=== PATIENT | male | born 1945 | race Hispanic/Latino ===

== ENCOUNTER 2018-04-19 21:30 | Emergency (ER) | payer MEDICARE ==
[2018-04-19 21:33] VITALS: BMI 38.3
[2018-04-19] MEDS ORDERED: EPINEPHrine- 1 MG in Sodium Chloride 0.9% 250 ML IV ONE (21:40)
--- NOTE | 2018-04-19 22:21 | ED PDOC ---
HPI: Cardiac Arrest Time Seen by Provider: 04/19/18 21:39 Chief Complaint (Nursing): Cardiac Arrest Chief Complaint (Provider): Cardiac Arrest History Per: EMS Reason For Code Blue: Full Arrest Circumstances: Brought To ED By EMS Arrest Witnessed By: By-stander CPR Initiated Prior To MD Arrival?: Yes Down-Time Before ACLS: Mins (less than 10 minutes) Treatment Initiated Prior To MD Arrival: CPR, Intubation, ACLS Medication Initiation, IV Access Medications Given Prior To MD Arrival: Epinephrine Additional Complaint(s): 73 y/o male with a PMHx of CHF and HTN brought in by ALS for a cardiac arrest. History obtained through EMS due to patient's clinical condition. Patient called friend stating he did not feel well. Friend arrived to patient's home, friend stated patient passed out thus prompting him to call EMS. On arrival, patient appeared tabatha-arrest. EMS report a down time of less than 10 minutes. EMS report patient had ROSC about 4 times, in and out lasting for approximately one hour upon arrival to triage. EMS state patient was given 3-4 epinephrines. Upon arrival, patient had a pulse in bradycardia with a blood pressure of 105/78. Patient intubated in the field, upon arrival to the ED. PMD: [facility] - Initial Findings Mentation: Unresponsive Respirations: None (Assisted) Pulse: Weak Rhythm: PEA Past Medical History Reviewed: Historical Data, Nursing Documentation, Vital Signs - Medical History PMH: CHF, HTN (20 years ago pt dx did not want to take Rx ) Denies: HIV - Surgical History Surgical History: No Surg Hx - Family History Family History: States: Unknown Family Hx - Home Medications Home Medications: Ambulatory Orders Medication Instructions Recorded RX: Albuterol 0.042% [Albuterol 1.25 mg INH RQ6 PRN #0 neb 05/16/14 0.042% Inhal Sandra (1.25mg/3ml) UD] RX: Atorvastatin [Lipitor] 20 mg PO DAILY #0 tab 05/16/14 RX: Carvedilol [Coreg] 6.25 mg PO Q12 #0 tab 05/16/14 RX: Enalapril Maleate [Vasotec] 2.5 mg PO DAILY #0 tab 05/16/14 RX: Enoxaparin [Lovenox] 40 mg SC DAILY #0 syr 05/16/14 RX: Escitalopram [Lexapro] 10 mg PO DAILY #0 tab 05/16/14 RX: Furosemide [Lasix] 40 mg PO DAILY #0 tab 05/16/14 - Allergies Allergies/Adverse Reactions: Allergies Allergy/AdvReac Type Severity Reaction Status Date / Time No Known Allergies Allergy Verified 04/19/18 21:42 Review of Systems Review Of Systems: ROS cannot be obtained secondary to pt's inabilty to answer questions. Physical Exam - Reviewed Nursing Documentation Reviewed: Yes Vital Signs Reviewed: Yes - Physical Exam Appears: Positive for: In Acute Distress (in cardiac arrest) Head Exam: Positive for: ATRAUMATIC Skin: Positive for: Pallor, Cyanosis (peripheral) Eye Exam: Negative for: EOMI, PERRL (pupils are fixed and dilated) ENT: Negative for: Normal ENT Inspection (ET tube present) Cardiovascular/Chest: Positive for: Other (Pulseless) Respiratory: Positive for: Crackles, Other (Assisted ventilation) Gastrointestinal/Abdominal: Positive for: Soft, Distended Neurologic/Psych: Positive for: Other (Comatose). Negative for: Alert, Oriented - ECG ECG: Positive for: Interpreted By Me, Viewed By Me ECG Rhythm: Positive for: Normal QRS, Atrial Fibrillation, Nonspecific Changes Rate: 50 - Radiology X-Ray: Interpreted by Me, Viewed By Me X-Ray Interpretation: Other (Pulmonary edema, ETT in place) - Critical Care Total Time (In Min): 20 Documented Critical Care: Time excludes all time spent performint seperately billable procedures Medical Decision Making Medical Decision Making: Time: 2139 Impression: Cardiac Arrest Differentials include but not limited to Cardiac Arrhythmia, ACS, CHF exacerbation with Acute Pulmonary Edema. Plan: -- ABG -- B-Type Natriuretic Peptide -- CMP -- Digoxin -- Troponin I -- ED Urine Dipstick -- CBC with Differentials -- PTT -- Prothrombin time -- CXR Portable -- Dextrose 5% in Water 250 ml Levophed 4 mg IV 4 mcg/min -- Sodium Chloride 0.9% 250 ml Ephinephrine 1 mg IV 5 mls/hr -- Blood Culture -- Heplock Insertion -- Accucheck -- Ventilator Setting RT -- Influenza A B -- Urinalysis Time: 2147 -- Patient is pulseless. Code Blue called. ACLS and CPR initiated. Patient additionally given 3 IV pushes of epinephrine. Time: 2154 Resuscitation terminated due to persistent PEA and no sustained ROSC. -- Time of called. Scribe Attestation: Documented by Geoff Niño, acting as a scribe for Katie Pires MD. Provider Scribe Attestation: All medical record entries made by the Scribe were at my direction and personally dictated by me. I have reviewed the chart and agree that the record accurately reflects my personal performance of the history, physical exam, medical decision making, and the department course for this patient. I have also personally directed, reviewed, and agree with the discharge instructions and disposition. Disposition - Clinical Impression Clinical Impression: Cardiac arrest, CHF (congestive heart failure) - Patient ED Disposition Is Patient to be Admitted: No - Disposition Disposition: Other Institution ([facility]) Disposition Time: 21:54 Condition:
--- NOTE | 2018-04-20 08:09 | RAD ---
Date of service: 04/19/2018 HISTORY: cardiac arrest COMPARISON: 05/16/2014 chest x-ray. CT chest without contrast report May 12 2014 noted FINDINGS: LUNGS: Multiple bilateral ill-defined patchy opacities are present-an interval change with the 05/16/2014 study these opacities compatible with bilateral areas of pulmonary edema and/or pulmonary infiltrates. PLEURA: The endotracheal tube enters the left main bronchus-this was called in to the ER at approximately 8 o'clock a.m. on 04/20/2018 plan speaking with the manager community relations Katrina at that time I was informed that the patient had . No significant pleural effusion identified, no pneumothorax apparent. CARDIOVASCULAR: There is presence of aortic atherosclerotic calcification on x-ray. Cardiomegaly-similar pulmonary venous congestion suspect. Defibrillator device projecting over thorax. OSSEOUS STRUCTURES: Thoracic spondylosis. VISUALIZED UPPER ABDOMEN: Normal. OTHER FINDINGS: None. IMPRESSION: Cardiomegaly and bilateral patchy airspace opacities-compatible with areas of pulmonary edema given the clinical history. Bilateral patchy infiltrates not excluded. Endotracheal tube positioning as above and as discussed above.
[2018-04-21 00:06] VITALS: PULSE 50
== END 2018-04-20 00:40 ==
LOC: H.ER 21:30
DX: I46.9 Cardiac arrest, cause unspecified (principal); J44.9 Chronic obstructive pulmonary disease, unspecified; I11.0 Hypertensive heart disease with heart failure